=== PATIENT | female | born 1975 | race Caucasian/White ===

== ENCOUNTER 2016-08-07 18:48 | Emergency (ER) | payer BC ==
[~2016-08-07 18:48] MED LIST: CIPR500T94 PO; CLON1TAB PO; DIAZ5TAB PO; DIPH25CA58 PO; ONDA4TAB10 PO; OXYC-323 PO; TRAM150C25 PO; TRAM50TA PO
[2016-08-07 19:03] VITALS: BP 122/69
[2016-08-07] MEDS ORDERED: HYDR-965 PO (19:17)
[2016-08-07] MEDS ORDERED: SULF1TAB24 PO (19:17)
[2016-08-07] MEDS ORDERED: PRED20TA PO (19:17)
--- NOTE | 2016-08-07 19:21 | PHYS DOC ---
General Chief Complaint: FACE PROBLEM Stated Complaint: SKIN PROBLEM Time Seen by MD: 19:06 Source: patient Exam Limitations: no limitations Problems: History of Present Illness Initial Comments Pt is 41/F to ED c/o facial pain. Pt states she's had a recurrant skin abscess right side of chin for years. Past 24 hours she says it's become swollen and painful. No fever/chills/malaise /PATTERSON/neck pain or stiffness. No dysphagia/mtz/sob/hoarseness. OTC meds not helping, pt requesting surgical removal here. Pt has h/o "skin abscesses" she is not familiar with "staph" or "MRSA." Timing/Duration: this morning Severity: moderate Location: facial Prearrival Treatment: over the counter meds Modifying Factors: improves with other Associated Symptoms: other Allergies: Coded Allergies: No Known Drug Allergies (Unverified , 10/21/15) Past Medical History Medical History: other (anxiety, breast abscess) Surgical History: other (breast abscess) Social History Smoker: cigarettes Alcohol: none Drugs: none Constitutional: denies chills, denies diaphoresis, denies fever, denies malaise , denies weakness Ears: denies dizziness, denies pain, denies tinnitus Nose: denies congestion, denies epistaxis Mouth: denies clots, denies pain, denies swelling Throat: denies pain, denies neck stiffness Respiratory: denies cough, denies shortness of breath Cardiovascular: denies chest pain, denies palpitations Gastrointestinal: denies diarrhea, denies vomiting Musculoskeletal: denies joint swelling, denies neck pain Skin: see HPI Physical Exam General Appearance: WD/WN, thin Eyes: bilateral eye EOMI, bilateral eye PERRL, bilateral eye normal inspection Nose: normal inspection Mouth/Throat: normal mouth inspection, pharynx normal Neck: non-tender, supple Cardiovascular/Respiratory: normal peripheral pulses, no respiratory distress 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 No abscess palpated) Orders, Labs, Meds I discussed tx plan with pt. Will treat with antibiotics to resolve infection, needs to f/u with her doctor as outpatient for in office removal or referral to specialist. Departure Time of Disposition: 19:17 Disposition: 01 HOME, SELF-CARE Diagnosis: infected skin cyst, cellulitis Condition: GOOD Patient Instructions: Cellulitis, [id number], Epidermal Cyst, [id number] Additional Instructions: Work excuse a few days if needed. Aggressive hydration with gatorade, water. Warm compresses to area 20 minutes, 4-6 times daily. Rx: bactrim ds, prednisone, norco 7.5mg #20 Take meds with food. Follow up with your doctor in one week for recheck. Return to ED with new or changing symptoms. PETAR FRAUSTO DO August 07, 2016 19:21
[2016-08-07] MEDS ORDERED: PREDNISONE 20 MG TABLET PO ONE (19:30)
[2016-08-07] MEDS ORDERED: ONDANSETRON ODT 4 MG TAB.RAPDIS PO ONE (19:30)
[2016-08-07] MEDS ORDERED: SMZ/TMP 800/160MG TABLET. PO ONE (19:30)
== END 2016-08-07 19:35 | disposition home or self-care (01) ==
LOC: ER 18:48
DX: L72.8 Other follicular cysts of the skin and subcutaneous tissue (principal); L03.211 Cellulitis of face; F17.210 Nicotine dependence, cigarettes, uncomplicated; F41.9 Anxiety disorder, unspecified
CPT/HCPCS: 99284; J7512; Q0162

== ENCOUNTER 2016-08-12 14:21 | Emergency (ER) | payer BC ==
[~2016-08-12] VITALS: Ht 167.6 cm; Wt 47.2 kg
[~2016-08-12 14:21] MED LIST changes: +HYDR-965 PO; +PRED20TA PO; +SULF1TAB24 PO
[2016-08-12 14:33] VITALS: BP 124/70
[2016-08-12] MEDS ORDERED: CLIN150C14 PO (14:58)
[2016-08-12] MEDS ORDERED: HYDR-971 PO (14:58)
--- NOTE | 2016-08-12 14:59 | PHYS DOC ---
Past History Past Medical History: No Pertinent History Past Surgical History: No Surgical History Smoking: Cigarettes Alcohol Use: None Drug Use: None Adult General Chief Complaint Chief Complaint: SKIN PROBLEM HPI HPI Patient is a 41-year-old female who was seen here on August 07 with the complaint of abscess of the jawline, she was prescribed Bactrim, prednisone, and [place]. She is taking the antibiotics as prescribed. She finished the prednisone. She states the [place] is not helping. Her pain is severe. Last night, the area began to drain pus which was very foul-smelling. She's had similar cutaneous abscesses in other areas and had one on her breast that had to be "cut out". Denies fever or chills, she does not feel well. She is tolerating the medications without nausea or vomiting. She is not diabetic. Review of Systems Review of Systems Constitutional: Denies fever or chills [] HENT: As in history of present illness GI: Denies vomiting Integument: As in history of present illness Allergies Allergies Allergies Coded Allergies Type Severity Reaction Last Updated Verified No Known Drug Allergies 10/21/15 No Physical Exam Physical Exam Constitutional: Well developed, well nourished, no acute distress, non-toxic appearance. Alert, mentating normally. HENT: Normocephalic, atraumatic, bilateral external ears normal, oropharynx moist, no oral exudates, nose normal. On the right jaw line there is a 2 cm area of redness and swelling with a opening in the center which has been draining purulent material but currently appears to be free of drainage. There is no surrounding cellulitis. There is some mild to moderate generalized swelling of the lower face in this area but that swelling is not red or warm. Eyes: conjunctiva normal, no discharge. [] Neck: Normal range of motion, no stridor. Small tender right anterior cervical lymphadenopathy. Skin: Warm, dry, no erythema, no rash. [] Extremities: No tenderness, no cyanosis, no clubbing, ROM intact, no edema. [] Neurologic: Alert and oriented X 3, normal motor function, normal sensory function, no focal deficits noted. [] Current Patient Data Vital Signs Vital Signs Date Time Temp Pulse Resp B/P (MAP) Pulse Ox O2 Delivery O2 Flow Rate FiO2 08/12/16 14:33 88 20 98 Room Air EKG EKG [] Radiology/Procedures Radiology/Procedures [] Course & Med Decision Making Course & Med Decision Making Pertinent Labs and Imaging studies reviewed. (See chart for details) 41-year-old female returns with a small abscess on her jaw line which has now drained some purulent material that she describes as foul-smelling. She was appropriately started on Bactrim on 08/07, this does look like possible MRSA to me , however she reports that her abscess is not better, the pain, swelling, and the size have not improved despite 5 days of Bactrim. I think we should cover her for anaerobes and she described the purulent drainage is foul smelling. We will have her continue Bactrim and add clindamycin. I wrote a prescription for that today. She is interested in having her abscess "cut out" and I told her that I'm not sure that that is indicated that she should follow up with her primary care physician to discuss. [] Dragon Disclaimer Dragon Disclaimer This chart was dictated in whole or in part using Voice Recognition software in a busy, high-work load, and often noisy Emergency Department environment. It may contain unintended and wholly unrecognized errors or omissions. Departure Departure: Impression: Primary Impression: Abscess, jawline Disposition: HOME, SELF-CARE Condition: STABLE Referrals: SANTOS LEIJA MD (PCP) Patient Instructions: Abscess, [id number] Additional Instructions: Do not squeeze or pick at the abscess. We do want it to drain, whenever there is pus, we want the pus to drain out. 3-4 times a day, apply a washcloth wet in warm water to help keep it open and draining. Use warm compresses throughout the day for comfort and to help it heal. Continue to take antibiotic that was prescribed on August 07, add the antibiotic that I am prescribing today. They treat different kinds of bacteria. Take ibuprofen 800 mg every 8 hours to help with pain and inflammation. Use [place] as directed for more severe pain, it is an opiate, not while driving. Recheck in 2-3 days with your doctor. Your doctor can recommend whether follow- up with a surgeon will be required. Scripts Hydrocodone Bit/Acetaminophen (NORCO 5-325 TABLET) 1 Each Tablet 1-2 TAB PO Q4-6HRS, #20 TAB Prov: NATHAN KIRK MD 08/12/16 Clindamycin Hcl (CLINDAMYCIN HCL) 150 Mg Capsule 150 MG PO TID for 7 Days, #21 CAP Prov: NATHAN KIRK MD 08/12/16 NATHAN KIRK MD August 12, 2016 14:58
== END 2016-08-12 15:10 | disposition home or self-care (01) ==
LOC: ER 14:21
DX: M27.2 Inflammatory conditions of jaws (principal); F17.210 Nicotine dependence, cigarettes, uncomplicated
CPT/HCPCS: 99283